=== PATIENT | female | born 1990 | race American Indian/Alaskan Native ===

== ENCOUNTER 2018-07-05 09:56 | Emergency (ER) | payer OTHER ==
[2018-07-05 10:33] VITALS: RESP 18; TEMP 98.2; O2SAT 100; BMI 29.2
--- NOTE | 2018-07-05 11:08 | ED PDOC ---
Arrival/HPI - General Historian: Patient - History of Present Illness Narrative History of Present Illness (Text): 07/05/18 11:07 27-year-old female with no significant past medical history presents to the emergency room complaining of pain to the plantar aspect of her left foot since yesterday. Patient reports that she had a cyst in the mid left foot removed 4 years ago. She was told that the cyst was located under the bone and not in her bone. She reports no fever, chills, numbness, redness, swelling, trauma, injury, decrease in range of motion, other joint pain. Patient has no other complaints. <Lexy Briones PA-C - Last Filed: 07/05/18 11:30> <Sergio Jang - Last Filed: 07/05/18 12:44> - General Chief Complaint: Lower Extremity Problem/Injury Time Seen by Provider: 07/05/18 09:58 Past Medical History - Psychiatric Hx Emotional Abuse: No Hx Physical Abuse: No Hx Substance Use: No - Surgical History Hx Musculoskeletal Surgery: Yes (LEFT FOOT SX 2014) - Anesthesia Hx Anesthesia: Yes Hx Anesthesia Reactions: No Hx Malignant Hyperthermia: No - Suicidal Assessment Feels Threatened In Home Enviroment: No <Lexy Briones PA-C - Last Filed: 07/05/18 11:30> Family/Social History Family/Social History: No Known Family HX Smoking Status: Never Smoked Hx Alcohol Use: Yes Hx Substance Use: No <Lexy Briones PA-C - Last Filed: 07/05/18 11:30> Allergies/Home Meds <Lexy Briones PA-C - Last Filed: 07/05/18 11:30> <Sergio Jang - Last Filed: 07/05/18 12:44> Allergies/Adverse Reactions: Allergies Penicillins Allergy (Verified 07/05/18 10:38) ANAPHYLAXIS Review of Systems - Review of Systems Constitutional: absent: Fatigue, Fevers Musculoskeletal: Arthralgias. absent: Back Pain, Neck Pain, Joint Swelling Skin: absent: Rash, Pruritis, Skin Lesions <Lexy Briones PA-C - Last Filed: 07/05/18 11:30> Physical Exam Vital Signs Temp Pulse Resp BP Pulse Ox 07/05/18 10:31 98.2 F 55 L 18 127/89 100 Temperature: Afebrile Blood Pressure: Normal Pulse: Regular Respiratory Rate: Normal Appearance: Positive for: Well-Appearing, Non-Toxic, Comfortable Pain Distress: Mild Mental Status: Positive for: Alert and Oriented X 3 - Systems Exam Upper Extremity: Present: Normal Inspection, Normal ROM. No: Edema Lower Extremity: Present: Normal Inspection, NORMAL PULSES, Normal ROM, Tenderness (+tenderness to the plantar aspect of the L foot), Neurovascularly Intact, Capillary Refill < 2 s. No: Edema, Swelling, Erythema, Deformity, Temperature Abnormalties Neurological: Present: GCS=15, CN II-XII Intact, Speech Normal, Motor Func Grossly Intact, Normal Sensory Function Skin: Present: Warm, Dry, Normal Color. No: Rashes Psychiatric: Present: Alert, Oriented x 3, Normal Insight, Normal Concentration <Lexy Briones PA-C - Last Filed: 07/05/18 11:30> Vital Signs Temp Pulse Resp BP Pulse Ox 07/05/18 12:00 57 L 18 130/71 100 07/05/18 10:31 98.2 F 55 L 18 127/89 100 <Sergio Jang - Last Filed: 07/05/18 12:44> Medical Decision Making ED Course and Treatment: 07/05/18 11:05 XR L foot : no fracture, no dislocation. On reevaluation, patient remains awake alert and oriented 3 in no acute distress. XR results reviewed with the patient. Fletcher wrap applied. Advised RICE to the foot. Offered crutches. Advised to follow up with podiatry in 1-2 days without fail. Advised to take medication as prescribed. Return to the emergency room at any time for any new or worsening symptoms. Patient states she fully agrees with and understands discharge instructions. States that she agrees with the plan and disposition. Verbalized and repeated discharge instructions and plan. I have given the patient opportunity to ask any additional questions. - RAD Interpretation Radiology Orders: 07/05/18 10:59 FOOT LEFT 3 VIEWS ROUTINE [RAD] Stat <Lexy Briones PA-C - Last Filed: 07/05/18 11:30> - RAD Interpretation Radiology Orders: 07/05/18 10:59 FOOT LEFT 3 VIEWS ROUTINE [RAD] Stat <Tolerico,Sergio - Last Filed: 07/05/18 12:44> - PA / GREENHOUSE WORKER / Resident Statement DOC has reviewed & agrees with the documentation as recorded. <Lexy Briones PA-C - Last Filed: 07/05/18 11:30> - PA / GREENHOUSE WORKER / Resident Statement DOC has reviewed & agrees with the documentation as recorded. <Sergio Jang - Last Filed: 07/05/18 12:44> Disposition/Present on Arrival - Present on Arrival Any Indicators Present on Arrival: No History of DVT/PE: No History of Uncontrolled Diabetes: No Urinary Catheter: No History of Decub. Ulcer: No History Surgical Site Infection Following: None - Disposition Have Diagnosis and Disposition been Completed?: Yes Disposition Time: 11:30 Patient Plan: Discharge <Lexy Briones PA-C - Last Filed: 07/05/18 11:30> <Sergio Jang - Last Filed: 07/05/18 12:44> - Disposition Diagnosis: Foot pain, left, Plantar fasciitis of left foot Disposition: HOME/ ROUTINE Condition: STABLE Discharge Instructions (ExitCare): Muscle and Bone Pain (DC), Plantar Fasciitis Exercises Additional Instructions: Thank you for letting us take care of you today. You were treated for L foot pain, plantar fasciitis. The emergency medical care you received today was directed at your acute symptoms. If you were prescribed any medication, please fill it and take as directed. Rest, ice and elevate your foot. It may take several days for your symptoms to resolve. Return to the Emergency Department if your symptoms worsen, do not improve, or if you have any other problems. Please contact your doctor in 2 days for re-evaluation and follow up / or call one of the physicians/clinics you have been referred to that are listed on the Patient Visit Information form that is included in your discharge packet. Bring any paperwork you were given at discharge with you along with any medications you are taking to your follow up visit. Our treatment cannot replace ongoing medical care by a primary care provider (PCP) outside of the emergency depart ment. Thank you for allowing the [facility] team to be part of your care today. Prescriptions: Naproxen 500 mg PO BID PRN #20 tablet PRN Reason: Pain, Moderate (4-7) Referrals: Netta Maciel DPM [Staff Provider] - Follow up with primary Forms: Outline (Estonian), WORK NOTE
--- NOTE | 2018-07-05 11:31 | RAD ---
Date of service: 07/05/2018 PROCEDURE: Left Foot Radiographs. HISTORY: pain COMPARISON: None. TECHNIQUE: 3 views obtained. FINDINGS: BONES: Bone alignment and mineralization are normal. There is no acute displaced fracture or bone destruction. JOINTS: Normal. SOFT TISSUES: Normal. OTHER FINDINGS: None. IMPRESSION: No acute displaced fracture or dislocation.
[2018-07-05 12:21] VITALS: BP 130/71; PULSE 57
== END 2018-07-05 12:21 | disposition home or self-care (01) ==
LOC: ED 09:56
DX: M72.2 Plantar fascial fibromatosis (principal); M79.672 Pain in left foot